=== PATIENT | male | born 1990 | race African-American/Black ===

== ENCOUNTER 2016-11-09 22:15 | Emergency (ER) | payer BC ==
[~2016-11-09] VITALS: Ht 195.6 cm; Wt 88.5 kg
[~2016-11-09 22:15] MED LIST: AMOXICILLIN 50500 MG PO; FIORICET 50-321 EACH PO; NAPROSYN500 MG PO; NOHOMEMEDICATIONS
[2016-11-10] MEDS ORDERED: NORCO 5-325 TA1 EACH PO (01:50)
[2016-11-10 02:00] VITALS: BP 128/89
== END 2016-11-10 02:37 | disposition home or self-care (01) ==
LOC: ER 22:15
DX: S00.83XA Contusion of other part of head, initial encounter (principal); R22.0 Localized swelling, mass and lump, head; R68.84 Jaw pain; G43.809 Other migraine, not intractable, without status migrainosus; Y04.0XXA Assault by unarmed brawl or fight, initial encounter; Y93.89 Activity, other specified; Y92.89 Other specified places as the place of occurrence of the external cause; Y99.8 Other external cause status

== ENCOUNTER 2017-01-29 16:14 | Emergency (ER) | payer BC ==
[~2017-01-29] VITALS: Ht 195.6 cm; Wt 86.2 kg
[~2017-01-29 16:14] MED LIST changes: +NORCO 5-325 TA1 EACH PO
[2017-01-29 16:19] VITALS: BP 135/90
[2017-01-29 16:35] LABS: URINE BILIRUBIN NEGATIVE (Negative); URINE BLOOD NEGATIVE (Negative); URINE COLOR YELLOW; URINE GLUCOSE-RANDOM* NEGATIVE (Negative); URINE KETONES NEGATIVE (Negative); URINE NITRITE NEGATIVE (Negative); URINE PROTEIN (DIPSTICK) NEGATIVE (Negative); URINE SPECIFIC GRAVITY 1.015 (1.003-1.035); URINE UROBILINOGEN 0.2 E.U./dl (0.2-1.0)
[2017-01-29 16:47] LABS: CASTS None Seen /LPF (None Seen); SQUAMOUS 0-3 Few /LPF (0-3)
[2017-01-29 16:48] LABS: BACTERIA 1-9 Few /HPF (None Seen); CRYSTALS None Seen /LPF (None Seen); URINE RBC 0-2 Rare /HPF (0-2); URINE WBC 6-15 Few /HPF (0-5)
== END 2017-01-29 17:09 | disposition home or self-care (01) ==
LOC: ER 16:14
PROVIDERS: Physician Assistant
DX: Z20.2 Contact with and (suspected) exposure to infections with a predominantly sexual mode of transmission (principal)

== ENCOUNTER 2019-11-12 04:31 | Emergency (ER) | payer OTHER ==
[~2019-11-12] VITALS: Ht 195.6 cm; Wt 86.2 kg
[2019-11-12] MEDS ORDERED: TRAMADOL 50 MG50 MG PO (05:02)
[2019-11-12] MEDS ORDERED: NAPROSYN500 MG PO (05:02)
[2019-11-12] MEDS ORDERED: DOXYCYCLINE 10100 MG PO (05:02)
[2019-11-12 06:02] LABS: URINE BILIRUBIN NEGATIVE (Negative); URINE BLOOD NEGATIVE (Negative); URINE CLARITY CLEAR; URINE COLOR YELLOW; URINE GLUCOSE-RANDOM* NEGATIVE (Negative); URINE KETONES NEGATIVE (Negative); URINE NITRITE-REFLEX NEGATIVE (Negative); URINE PROTEIN (DIPSTICK) NEGATIVE (Negative); URINE UROBILINOGEN 0.2 E.U./dl (0.2-1.0)
[2019-11-12 06:03] LABS: URINE LEUKOCYTES-REFLEX 1+ (Negative)
[2019-11-12 06:19] VITALS: BP 136/77
[2019-11-12 06:24] LABS: CASTS None Seen /LPF (None Seen); MUCUS None Seen strn/LPF (None Seen); SQUAMOUS None Seen /LPF (0-3); URINE WBC-REFLEX 0-5 Rare /HPF (0-5)
[2019-11-12 06:25] LABS: BACTERIA-REFLEX 1-9 Few /HPF (None Seen); CRYSTALS None Seen /LPF (None Seen); URINE RBC None Seen /HPF (0-2)
== END 2019-11-12 06:19 | disposition home or self-care (01) ==
LOC: ER 04:31
PROVIDERS: Emergency Medicine
DX: N45.3 Epididymo-orchitis (principal); G43.909 Migraine, unspecified, not intractable, without status migrainosus

== ENCOUNTER 2021-10-21 13:45 | Emergency (ER) | payer OTHER ==
[~2021-10-21] VITALS: Ht 195.6 cm; Wt 90.7 kg
[~2021-10-21 13:45] MED LIST changes: +DOXYCYCLINE 10100 MG PO; +TRAMADOL 50 MG50 MG PO
[2021-10-21 13:52] VITALS: BP 162/89
[2021-10-21 14:13] LABS: URINE BILIRUBIN NEGATIVE (Negative); URINE BLOOD TRACE (Negative); URINE CLARITY CLEAR; URINE COLOR YELLOW; URINE GLUCOSE-RANDOM* NEGATIVE (Negative); URINE KETONES NEGATIVE (Negative); URINE NITRITE-REFLEX NEGATIVE (Negative); URINE PROTEIN (DIPSTICK) NEGATIVE (Negative); URINE UROBILINOGEN 0.2 E.U./dl (0.2-1.0)
[2021-10-21 14:25] LABS: URINE LEUKOCYTES-REFLEX 1+ (Negative)
[2021-10-21 14:33] LABS: BACTERIA-REFLEX 1-9 Few /HPF (None Seen); CASTS None Seen /LPF (None Seen); SQUAMOUS 0-3 Few /LPF (0-3); URINE RBC 1-2 Rare /HPF (NONE SEEN); URINE WBC-REFLEX 6-15 Few /HPF (0-5)
[2021-10-21 14:34] LABS: CRYSTALS None Seen /LPF (None Seen)
[2021-10-21] MEDS ORDERED: CEPHALEXIN500 MG PO (14:42)
== END 2021-10-21 15:00 | disposition home or self-care (01) ==
LOC: ER 13:45
PROVIDERS: Emergency Medicine; Nurse Practitioner
DX: N34.2 Other urethritis (principal); G43.909 Migraine, unspecified, not intractable, without status migrainosus; Z79.899 Other long term (current) drug therapy